=== PATIENT | male | born 1955 | race Hispanic/Latino ===

== ENCOUNTER → 2023-10-30 | Outpatient (CLI) | payer OTHER | END | disposition home or self-care (01) | LOC: RAH 11:14 | PROVIDERS: ATTEND Family Medicine | DX: S22.000A Wedge compression fracture of unspecified thoracic vertebra, initial encounter for closed fracture (principal); X58.XXXA Exposure to other specified factors, initial encounter; Y93.89 Activity, other specified; Y92.89 Other specified places as the place of occurrence of the external cause; Y99.8 Other external cause status | CPT/HCPCS: 72146 ==

== ENCOUNTER 2024-05-09 06:17 | Observation (INO) | payer OTHER ==
[2024-05-04 11:23] LABS: APPEARANCE,URINE CLEAR (CLEAR); BILIRUBIN,URINE NEGATIVE (NEGATIVE); COLOR,URINE LIGHT-YELLOW (YELLOW); GLUCOSE, URINE (UA) >=1000 mg/dL (NEGATIVE); KETONES,URINE 10 mg/dL (NEGATIVE); LEUKOCYTE ESTERASE ,URINE NEGATIVE Leu/uL (NEGATIVE); NITRATE,URINE NEGATIVE (NEGATIVE); OCCULT BLOOD,URINE NEGATIVE (NEGATIVE); PROTEIN,URINE NEGATIVE (NEGATIVE); UROBILINOGEN,URINE 0.2 mg/dL (0.2-1.0)
[2024-05-04 11:27] LABS: ADD UA MICROSCOPIC YES
[2024-05-04 11:29] LABS: MUCUS,URINE RARE LPF (None Seen); RBC,URINE 0-1 /HPF (0-1); SQUAMOUS EPITHELIAL CELL,UR RARE /HPF (0-2); WBC,URINE 0-1 /HPF (0-1)
[2024-05-04 11:39] LABS: ALBUMIN 3.8 g/dL (3.5-5.0)
[2024-05-04 12:08] VITALS: BP 126/74; PULSE 74; RESP 17
[2024-05-09] VITALS (17 sets, daily range): BP systolic 101–151; BP diastolic 52–89; PULSE 74–94; RESP 15–20; O2SAT 90–97
[~2024-05-09] VITALS: Ht 172.7 cm; Wt 118.3 kg
[~2024-05-09 06:17] MED LIST: ASPI-1443 PO; CALC625T68 PO; CLOB30CR4 TP; CLOP75TA32 PO; DICL100G60 TP; EMPA25TA PO; EPIN0.3P2 IM; FLUTICASONE IH; GABA300C PO; INSLAN SQ; INSU100C6 SQ; MENTHOL TP; METF-446 PO; METHYL SALICYLATE TP; METO25TA6 PO; MUPI15CR12 TP; NITR0.4T50 SL; SALMETEROL IH; SEMA2PEN SQ; SIMV-43 PO; TADA5TAB13 PO; VENL-63 PO; [UNRECOGNIZED DRUG - OTHER] OU
[2024-05-09] MEDS ORDERED: KETOROLAC 30MG VIAL (30MG/ML) ONE (07:59)
[2024-05-09] MEDS ORDERED: TRANEXAMIC ACID 1000MG/10ML ONE (07:59)
[2024-05-09] MEDS ORDERED: ROPIVACAINE 0.5% 5MG/ML 30ML ONE ×2 (08:00→10:37)
[2024-05-09] MEDS ORDERED: SUCCINYLCHOLINE CHLORIDE 20 MG/ML 10 ML VIAL ONE (08:22)
[2024-05-09] MEDS ORDERED: LIDOCAINE PF 100MG/5ML (2%) SYRINGE 5ML ONE ×2 (08:23→08:25)
[2024-05-09] MEDS ORDERED: ROCURONIUM BROMIDE 10MG/1ML 5ML VL ONE (08:24)
[2024-05-09] MEDS ORDERED: GLYCOPYRROLATE 0.2 MG/ML 5 ML VIAL ONE (08:24)
[2024-05-09] MEDS ORDERED: ONDANSETRON 4MG INJ ONE (08:24)
[2024-05-09] MEDS ORDERED: MIDAZOLAM HCL 1 MG/ML 2ML VIAL ONE (08:24)
[2024-05-09] MEDS ORDERED: PROPOFOL 10 MG/ML 20ML VIAL IV ONE (08:24)
[2024-05-09] MEDS ORDERED: NEOSTIGMINE METHYLSULFATE 1MG/ML IV ONE (08:24)
[2024-05-09] MEDS ORDERED: FENTANYL CITRATE PF 50 MCG/1 ML 2ML VIAL ONE ×3 (08:25→11:12)
[2024-05-09] MEDS: 0.9%NACL 1000ML 1,000 ML IV ONE (08:26)
[2024-05-09] MEDS: CLINDAMYCIN IVPB 900MG/50ML 50 ML IV ONE (08:26)
[2024-05-09] MEDS: CLINDAMYCIN 900MG/6ML INJ IJ ONE (08:50)
[2024-05-09] MEDS: CLINDAMYCIN IVPB 600MG/50ML 100 ML IV ONE (08:52)
[2024-05-09] MEDS ORDERED: EPHEDRINE SULFATE 50 MG/ML AMPULE ONE (09:29)
[2024-05-09] MEDS: ROPIVACAINE 0.5% 5MG/ML 30ML IJ ONE (10:00)
[2024-05-09] MEDS ORDERED: CYCLOBENZAPRINE HCL 10 MG TABLET PO PRN (10:30)
[2024-05-09] MEDS ORDERED: FERROUS FUMARATE 324 MG TABLET PO PRN (10:30)
[2024-05-09] MEDS ORDERED: ONDANSETRON 4MG INJ IVP PRN (10:30)
[2024-05-09] MEDS ORDERED: KCL 20 MEQ ERTAB PO PRN (10:30)
[2024-05-09] MEDS ORDERED: POTASSIUM CHLORIDE 10% ELIXIR 20 MEQ/15 ML UDCUP PO PRN (10:30)
[2024-05-09] MEDS ORDERED: POTASSIUM CHLORIDE 20MEQ/100ML 100 ML IV PRN (10:30)
[2024-05-09] MEDS: KETOROLAC 15MG/ML VIAL (15MG/ML) ONE (12:26)
[2024-05-09] MEDS: KETOROLAC 15MG/ML VIAL (15MG/ML) IV SCH (12:26)
[2024-05-09] MEDS: HYDROCODONE/ACETAMINOPHEN 5/325 MG TAB PO PRN (13:57)
[2024-05-09] MEDS: 0.9%NACL 1000ML 1,000 ML IV SCH (13:57)
[2024-05-09] MEDS ORDERED: (Semaglutide (Ozempic) 2 MG) SQ SCH (14:00)
[2024-05-09] MEDS ORDERED: CLOBETASOL PROPIONATE 0.05% CR 60 GM CRM TP PRN (14:00)
[2024-05-09] MEDS ORDERED: DICLOFENAC SODIUM APPL TP PRN (14:00)
[2024-05-09] MEDS ORDERED: APPL TP PRN (14:00)
[2024-05-09] MEDS ORDERED: GABAPENTIN 100 MG CAPSULE PO SCH (14:00)
[2024-05-09] MEDS ORDERED: EPINEPHRINE 0.3 MG/0.3 ML PEN IM PRN (14:00)
[2024-05-09] MEDS ORDERED: NITROGLYCERIN 0.4 MG SL TAB SL PRN (14:00)
[2024-05-09] MEDS: CEFAZOLIN SODIUM 2 GM VIAL IVPB SCH (16:05)
[2024-05-09] MEDS: [UNRECOGNIZED DRUG - OTHER] OU SCH (17:00)
[2024-05-09] MEDS: METFORMIN HCL 500 MG TABLET PO SCH (17:17)
[2024-05-09] MEDS: INSULIN LISPRO 100 UNIT/ML 3ML SQ SCH (17:22)
[2024-05-09] MEDS: METOPROLOL TARTRATE 25 MG TAB PO SCH (20:46)
[2024-05-09] MEDS: DOCUSATE SODIUM 100 MG CAP PO SCH (20:46)
[2024-05-09] MEDS: GABAPENTIN 300 MG CAPSULE PO SCH (20:47)
[2024-05-09] MEDS: SIMVASTATIN 20 MG TABLET PO SCH (20:47)
[2024-05-09] MEDS: [UNRECOGNIZED DRUG - OTHER] TP SCH (20:58)
[2024-05-09] MEDS: INSULIN GLARGINE 100 UNITS/ML 10 ML VIAL SQ SCH (20:58)
[2024-05-09] MEDS: CALCIUM POLYCARBOPHIL PO SCH (20:59)
[2024-05-09] MEDS: VENLAFAXINE HCL 300 MG PO SCH (20:59)
[2024-05-09] MEDS: FLUTICASONE IH SCH (20:59)
[2024-05-09] MEDS: SALMETEROL IH SCH (20:59)
[2024-05-10] VITALS (7 sets, daily range): BP systolic 123–174; BP diastolic 66–85; PULSE 79–88; RESP 18–20; O2SAT 94–96
[2024-05-10 05:05] LABS: HEMATOCRIT 32.8 % (42-54); MEAN CORPUSCULAR HGB CONC 32.3 g/dL (32.0-36.0); MEAN CORPUSCULAR VOLUME 92.9 fL (79-99); RED BLOOD CELL COUNT(AUTO) 3.53 MIL/uL (4.50-6.20); RED CELL DISTRIBUTION WIDTH 13.2 % (11.0-15.5); WHITE BLOOD COUNT (AUTO) 10.1 K/uL (4.8-10.8)
[2024-05-10 05:23] LABS: CREATININE 0.9 mg/dL (0.5-1.3); POTASSIUM 4.6 mmol/L (3.5-5.1)
[2024-05-10] MEDS: CALCIUM CARB 500MG PO PRN (08:29)
[2024-05-10] MEDS: TRAMADOL HCL 50 MG TABLET PO PRN (08:30)
[2024-05-10] MEDS: EMPAGLIFLOZIN 25MG TABLET PO SCH (08:30)
[2024-05-10] MEDS: ASPIRIN 325MG EC TAB PO SCH (08:31)
[2024-05-10] MEDS: POLYETHYLENE GLYCOL 3350 17 GM POWD.PACK PO SCH (08:31)
[2024-05-10] MEDS: INSULIN GLARGINE 100 UNITS/ML 10 ML VIAL SQ SCH (08:40)
[2024-05-10] MEDS ORDERED: TADALAFIL PO SCH (09:00)
[2024-05-10] MEDS: KETOROLAC 15MG/ML VIAL (15MG/ML) IV PRN (20:08)
[2024-05-10] MEDS: CLOPIDOGREL 75MG TAB PO SCH (21:21)
[2024-05-11 04:23] VITALS: BP 165/88; PULSE 85; RESP 20
[2024-05-11 07:50] VITALS: O2SAT 95
[2024-05-11 08:00] VITALS: BP 160/73; PULSE 88; RESP 19
[2024-05-11 12:00] VITALS: BP 157/75; PULSE 81; RESP 19
[2024-05-11] MEDS ORDERED: ASPI-891 PO (13:26)
[2024-05-11] MEDS ORDERED: CYCL-309 PO (13:26)
[2024-05-11] MEDS ORDERED: HYDR-4060 PO (13:26)
[2024-05-11] MEDS ORDERED: DOCU-116 PO (13:26)
[2024-05-12] MEDS ORDERED: BISACODYL 10 MG SUPP.RECT RC PRN (10:30)
== END 2024-05-11 14:05 | disposition home health service (06) ==
LOC: DAH 06:17 → DAHIP 06:18 → 4AH 12:50
PROVIDERS: ADMIT Student in an Organized Health Care Education/Training Program; ATTEND Student in an Organized Health Care Education/Training Program
DX: M17.12 Unilateral primary osteoarthritis, left knee (principal); G89.18 Other acute postprocedural pain; E11.9 Type 2 diabetes mellitus without complications; K21.9 Gastro-esophageal reflux disease without esophagitis; J45.909 Unspecified asthma, uncomplicated; Z90.49 Acquired absence of other specified parts of digestive tract; Z79.84 Long term (current) use of oral hypoglycemic drugs; Z79.4 Long term (current) use of insulin; Z88.0 Allergy status to penicillin; Z79.899 Other long term (current) drug therapy
CPT/HCPCS: 82040; 87086; 84134; 86140; 81001; 36415 ×2; 93005; 87641; 64447; 27447; 96372 ×4; 96365; 96366; 96375; 82948 ×7; 73560; 97161; 97116 ×5; 97530 ×6; 96376 ×2; 80048; 85027; G0378 ×45; A4663; A4215 ×2; J3010 ×3; J3490 ×8; J0330; J7030; J2001 ×2; J2250; J2704; J2405; J1885 ×7; J2710; J2795 ×3; J0690 ×3; C1713 ×2; G0168; C1776 ×2; A4649 ×2; A6255; A4223; A4222; A4221

== ENCOUNTER 2024-05-19 15:44 | Emergency (ER) | payer OTHER, MEDICARE ==
[~2024-05-19] VITALS: Ht 172.7 cm; Wt 112.9 kg
[~2024-05-19 15:44] MED LIST changes: -ASPI-1443 PO; +ASPI-891 PO; +CYCL-309 PO; +DOCU-116 PO; +HYDR-4060 PO
[2024-05-19 15:46] VITALS: BP 140/68; PULSE 85; RESP 20
[2024-05-19 16:48] LABS: BASOPHILS # (AUTO) 0.05 K/uL (0.00-0.20); BASOPHILS % (AUTO) 0.6 % (0.0-5.0); EOSINOPHILS # (AUTO) 0.25 K/uL (0.00-0.70); EOSINOPHILS % (AUTO) 2.9 % (0.0-8.0); HEMATOCRIT 36.3 % (42-54); LYMPHOCYTES # (AUTO) 1.8 K/uL (1.0-4.8); MEAN CORPUSCULAR HEMOGLOBIN 30.3 pg (27.0-33.0); MEAN CORPUSCULAR HGB CONC 31.7 g/dL (32.0-36.0); MEAN CORPUSCULAR VOLUME 95.8 fL (79-99); MONOCYTES # (AUTO) 0.7 K/uL (0.1-1.0); MONOCYTES % (AUTO) 8.1 % (3.0-13.0); NEUTROPHILS # (AUTO) 5.6 K/uL (1.8-7.7); NEUTROPHILS % (AUTO) 66.2 % (40.0-77.0); PLATELET COUNT (AUTO) 422 K/uL (130-400); RED BLOOD CELL COUNT(AUTO) 3.79 MIL/uL (4.50-6.20); RED CELL DISTRIBUTION WIDTH 14.2 % (11.0-15.5); WHITE BLOOD COUNT (AUTO) 8.5 K/uL (4.8-10.8)
[2024-05-19 16:54] LABS: INR 0.94 (0.85-1.15); PROTHROMBIN TIME 10.2 SEC (9.6-11.6)
[2024-05-19] MEDS: HYDROCODONE/ACETAMINOPHEN 5/325 MG TAB PO ONE (16:54)
[2024-05-19 16:56] LABS: PARTIAL THROMBOPLASTIN TIME 30.3 SEC (26.3-35.5)
[2024-05-19 17:06] LABS: ALBUMIN 3.2 g/dL (3.5-5.0); BILIRUBIN,TOTAL 0.6 mg/dL (0.2-1.0); CREATININE 0.9 mg/dL (0.5-1.3); POTASSIUM 4.6 mmol/L (3.5-5.1); TOTAL PROTEIN, SERUM 7.9 g/dL (6.0-8.3)
== END 2024-05-19 17:44 | disposition home or self-care (01) ==
LOC: EDH 15:44
DX: M79.89 Other specified soft tissue disorders (principal); M79.652 Pain in left thigh; D64.9 Anemia, unspecified; E11.65 Type 2 diabetes mellitus with hyperglycemia; E11.9 Type 2 diabetes mellitus without complications; E78.00 Pure hypercholesterolemia, unspecified; J45.909 Unspecified asthma, uncomplicated; M19.90 Unspecified osteoarthritis, unspecified site; Z79.82 Long term (current) use of aspirin; Z79.84 Long term (current) use of oral hypoglycemic drugs; Z79.899 Other long term (current) drug therapy; Z88.0 Allergy status to penicillin; Z96.653 Presence of artificial knee joint, bilateral; Z98.890 Other specified postprocedural states
CPT/HCPCS: 36415; 80053; 83605; 85025; 85610; 85730; 87040; 93971

== ENCOUNTER → 2024-12-05 | Outpatient (CLI) | payer OTHER ==
[~2024-12-05] VITALS: Ht 172.7 cm; Wt 120.7 kg
[~2024-12-05] MED LIST changes: +CELE200 PO; +ESOM40CA66 PO; +IBUP-2784 PO; +TADA-54 PO; -TADA5TAB13 PO; +tramadol PO
[2024-12-05 14:33] LABS: BASOPHILS # (AUTO) 0.03 K/uL (0.00-0.20); BASOPHILS % (AUTO) 0.4 % (0.0-5.0); EOSINOPHILS # (AUTO) 0.28 K/uL (0.00-0.70); EOSINOPHILS % (AUTO) 3.4 % (0.0-8.0); HEMATOCRIT 42.7 % (42-54); IMMATURE GRANULOCYTE ABSOLUTE 0.03 K/uL (0-1); LYMPHOCYTES # (AUTO) 2.1 K/uL (1.0-4.8); LYMPHOCYTES % (AUTO) 25.2 % (21.0-51.0); MEAN CORPUSCULAR HEMOGLOBIN 28.5 pg (27.0-33.0); MEAN CORPUSCULAR HGB CONC 31.1 g/dL (32.0-36.0); MEAN CORPUSCULAR VOLUME 91.6 fL (79-99); MONOCYTES # (AUTO) 0.6 K/uL (0.1-1.0); MONOCYTES % (AUTO) 7.8 % (3.0-13.0); NEUTROPHILS # (AUTO) 5.1 K/uL (1.8-7.7); NEUTROPHILS % (AUTO) 62.8 % (40.0-77.0); PLATELET COUNT (AUTO) 273 K/uL (130-400); RED BLOOD CELL COUNT(AUTO) 4.66 MIL/uL (4.50-6.20); RED CELL DISTRIBUTION WIDTH 13.7 % (11.0-15.5); WHITE BLOOD COUNT (AUTO) 8.2 K/uL (4.8-10.8)
[2024-12-05 14:43] LABS: POTASSIUM 4.5 mmol/L (3.5-5.1)
[2024-12-05 14:45] LABS: INR <= 0.93 (0.85-1.15); PROTHROMBIN TIME 9.9 SEC (9.6-11.6)
[2024-12-05 14:47] LABS: PARTIAL THROMBOPLASTIN TIME 29.6 SEC (26.3-35.5)
[2024-12-05 15:00] VITALS: BP 142/69; PULSE 73; RESP 13; TEMP 97.5
--- NOTE | 2024-12-06 06:34 | EKG ---
[facility] Test Date: 2024-12-05 Test Time: 15:15:36 Pat Name: SERVANDO VITALE Department[facility] Room: Gender: M Summer Intern: [id number] : 1955 Requested By: KENROY MARINELLI Order Number: [id number] Reading MD: Francisco Vizcaino Measurements Intervals Bells Rate: 65 P: 25 MI: 216 QRS: 11 QRSD: 97 T: 30 QT: 381 QTc: 398 Interpretive Statements Sinus rhythm Borderline prolonged MI interval Compared to ECG 05/04/2024 11:01:45 No significant changes Electronically Signed On 12-07-2024 12:44:02 [facility] by Francisco Vizcaino Please click the below link to view image of tracing.
== END ==
LOC: DAH 13:43 → EDSTATUS 16:00
PROVIDERS: ATTEND Student in an Organized Health Care Education/Training Program
DX: Z01.818 Encounter for other preprocedural examination (principal); M65.332 Trigger finger, left middle finger; M65.342 Trigger finger, left ring finger; E11.9 Type 2 diabetes mellitus without complications; K21.9 Gastro-esophageal reflux disease without esophagitis; J45.909 Unspecified asthma, uncomplicated; M19.90 Unspecified osteoarthritis, unspecified site; Z79.01 Long term (current) use of anticoagulants; Z90.49 Acquired absence of other specified parts of digestive tract; Z83.3 Family history of diabetes mellitus; Z88.0 Allergy status to penicillin; Z79.899 Other long term (current) drug therapy; Z98.890 Other specified postprocedural states
CPT/HCPCS: 36415; 80048; 85025; 85610; 85730; 93005

== ENCOUNTER 2025-01-09 06:02 | Day surgery (SDC) | payer OTHER ==
[2025-01-05 09:53] LABS: BASOPHILS # (AUTO) 0.03 K/uL (0.00-0.20); BASOPHILS % (AUTO) 0.5 % (0.0-5.0); EOSINOPHILS # (AUTO) 0.21 K/uL (0.00-0.70); EOSINOPHILS % (AUTO) 3.3 % (0.0-8.0); HEMATOCRIT 40.6 % (42-54); IMMATURE GRANULOCYTE ABSOLUTE 0.03 K/uL (0-1); LYMPHOCYTES # (AUTO) 1.7 K/uL (1.0-4.8); LYMPHOCYTES % (AUTO) 26.4 % (21.0-51.0); MEAN CORPUSCULAR HEMOGLOBIN 28.1 pg (27.0-33.0); MEAN CORPUSCULAR VOLUME 90.6 fL (79-99); MONOCYTES # (AUTO) 0.5 K/uL (0.1-1.0); MONOCYTES % (AUTO) 7.3 % (3.0-13.0); NEUTROPHILS # (AUTO) 3.9 K/uL (1.8-7.7); PLATELET COUNT (AUTO) 237 K/uL (130-400); RED BLOOD CELL COUNT(AUTO) 4.48 MIL/uL (4.50-6.20); RED CELL DISTRIBUTION WIDTH 13.8 % (11.0-15.5); WHITE BLOOD COUNT (AUTO) 6.3 K/uL (4.8-10.8)
[2025-01-05 10:00] LABS: CREATININE 0.9 mg/dL (0.5-1.3); POTASSIUM 4.3 mmol/L (3.5-5.1)
[2025-01-05 10:01] VITALS: BP 154/77; PULSE 75; RESP 18; TEMP 97.7
[2025-01-05 10:16] LABS: INR 0.96 (0.85-1.15); PROTHROMBIN TIME 10.2 SEC (9.6-11.6)
[2025-01-05 10:17] LABS: PARTIAL THROMBOPLASTIN TIME 29.1 SEC (26.3-35.5)
[2025-01-09] VITALS (12 sets, daily range): BP systolic 104–149; BP diastolic 63–86; PULSE 69–78; RESP 14–16; TEMP 97–97.3
[~2025-01-09] VITALS: Ht 172.7 cm; Wt 121.6 kg
[~2025-01-09 06:02] MED LIST changes: -ASPI-891 PO; -CALC625T68 PO; -CLOB30CR4 TP; -CLOP75TA32 PO; -CYCL-309 PO; -DICL100G60 TP; -DOCU-116 PO; -FLUTICASONE IH; -GABA300C PO; -HYDR-4060 PO; -MENTHOL TP; -METHYL SALICYLATE TP; -METO25TA6 PO; -MUPI15CR12 TP; -NITR0.4T50 SL; -SALMETEROL IH; -TADA-54 PO; +TADA5TAB14 PO; +TRAM50TA4 PO; -[UNRECOGNIZED DRUG - OTHER] OU; -tramadol PO
[2025-01-09] MEDS ORDERED: FAMOTIDINE 20MG VIAL IV ONE (06:41)
[2025-01-09] MEDS ORDERED: acetaMINOPHEN 100 ML ONE (06:41)
[2025-01-09] MEDS: 0.9%NACL 1000ML 1,000 ML IV ONE (06:48)
[2025-01-09] MEDS ORDERED: proPOFol 10 MG/ML 20ML VIAL IV ONE (06:49)
[2025-01-09] MEDS ORDERED: FENTanyl CITRate PF 50 MCG/1 ML 2ML VIAL ONE (06:49)
[2025-01-09] MEDS ORDERED: LIDOCAINE PF 100MG/5ML (2%) SYRINGE 5ML ONE (06:49)
[2025-01-09] MEDS ORDERED: ondanSETRON 4MG INJ ONE (07:29)
[2025-01-09] MEDS ORDERED: dexaMETHasone SOD PHOSPHATE 10MG/ML 1ML VIAL ONE (07:29)
[2025-01-09] MEDS: CLINDAMYCIN IVPB 900MG/50ML 50 ML IV ONE (07:30)
[2025-01-09] MEDS ORDERED: GLYCOPYRROLATE 0.2 MG/ML 5 ML VIAL ONE (07:37)
[2025-01-09] MEDS ORDERED: rocuRONium bROMide 10MG/1ML 5ML VL ONE (07:37)
[2025-01-09] MEDS ORDERED: phenylEPHRINE HCL 10 MG/ML 1ML VIAL IV ONE (07:38)
[2025-01-09] MEDS: BUPIvacaine/PF 0.25% 10ML VIAL IJ ONE (07:53)
[2025-01-09] MEDS ORDERED: ACET-2079 PO (08:14)
--- NOTE | 2025-01-09 09:16 | NUR ---
Full and complete discharge instructions given to Patient and Family both verbally and in writing. Explained Surgical procedure precautions and follow up. Neurovascularly intact. All questions answered. PIV removed with catheter tip intact. Home with Family W/C to POV.
--- NOTE | 2025-01-09 12:19 | OP ---
Operative Note: DATE OF PROCEDURE: 01/09/25 SURGEON: KENROY MARINELLI MD POLICE CHIEF: Yanick Al ANESTHESIA: General ANESTHESIOLOGIST/BIOMEDICAL FIELD SERVICE ENGINEER: Edith Bone PREOPERATIVE DIAGNOSIS: Left middle finger and ring finger trigger fingers POSTOPERATIVE DIAGNOSIS: Left middle finger and ring finger trigger fingers PROCEDURE: Left middle finger and ring finger trigger finger release ESTIMATED BLOOD LOSS: None INDICATIONS: 69-year-old male with left middle and ring finger trigger finger. Patient has locking and clicking of the fingers with range of motion that has become debilitating. After discussion of the risk, benefits, and alternatives, the patient voluntarily agreed to undergo the aforementioned procedure. DESCRIPTION OF PROCEDURE: Patient was properly identified in the preoperative holding area. Surgical site marking was verified and surgery consent reviewed. The patient was then taken to the operating room and placed in supine position on the OR table. After induction of general anesthesia, preoperative antibiotics were given, all bony prominences were well-padded, and a well padded tourniquet was applied but not inflated at this time. The left upper extremity was then prepped and draped in usual sterile fashion. Surgical time out was done verifying correct surgery, side, site, and location to be performed. We then began the procedure by exsanguinating the arm using an Esmarch and inflating a tourniquet to 250 mmHg. We made an approximately 1 cm long incision at the level of the A1 jean-paul on the volar aspect of the metacarpal head for the left middle finger. Here we came down sharply through the subcutaneous tissue and identified the A1 jean-paul. We then began to come through this a little bit at a time using a 15 blade with small amounts of pressure being applied. The jean-paul was then are not released. We then checked proximally and distally with a freer elevator to ensure we had full release. The tendons were then delivered into the wound using abdominal and the center retractor. There was minimal pathologic tissue noted on the tendons. We then repeated this process for the A1 jean-paul of the left ring finger. We then thoroughly irrigated out the wounds with normal saline and injected the surrounding tissue with Marcaine. The wounds were then closed with 3-0 nylon interrupted simple suture pattern. Soft sterile dressing was applied with Xeroform, 4 x 4's, and Coban. The tourniquet was then deflated. The patient was then awakened from anesthesia and taken to the recovery in stable condition. KENROY MARINELLI MD Jan 09, 2025 12:19
== END 2025-01-09 09:25 | disposition home or self-care (01) ==
LOC: DAH 06:02
PROVIDERS: ATTEND Student in an Organized Health Care Education/Training Program
DX: M65.332 Trigger finger, left middle finger (principal); M65.342 Trigger finger, left ring finger; M79.642 Pain in left hand; E11.9 Type 2 diabetes mellitus without complications; K21.9 Gastro-esophageal reflux disease without esophagitis; M19.90 Unspecified osteoarthritis, unspecified site; J45.909 Unspecified asthma, uncomplicated; Z96.652 Presence of left artificial knee joint; Z88.0 Allergy status to penicillin; Z90.49 Acquired absence of other specified parts of digestive tract; Z79.01 Long term (current) use of anticoagulants; Z79.4 Long term (current) use of insulin; Z79.899 Other long term (current) drug therapy
CPT/HCPCS: 36415; 80048; 85025; 85730; 85610; 26055 ×2; 01810; 82948 ×2; A4663; A4649; J3490 ×4; J3010; J1100; J7030; J2003; J2704; J2405; J0665; J2371; A6223; A5120; A4215; A4222; A4221; A4216; A4223 ×2